=== PATIENT | male | born 1995 | race African-American/Black ===

== ENCOUNTER 2016-06-17 23:08 | Emergency (ER) | payer OTHER | END 2016-06-17 23:52 | disposition home or self-care (01) | LOC: ER1 23:08 | DX: M70.31 Other bursitis of elbow, right elbow (principal); Z88.0 Allergy status to penicillin; Z88.2 Allergy status to sulfonamides | CPT/HCPCS: 99283 ==

== ENCOUNTER 2021-01-03 18:23 | Emergency (ER) | payer SELFPAY ==
[~2021-01-03 18:23] MED LIST: CYCLOBENZAPRINE5 MG PO; EPIPEN 2-P0.3 MG/0.3 INJ; IBUPROFEN800 MG PO
[2021-01-03] MEDS ORDERED: IBUPROFEN600 MG PO (18:58)
== END 2021-01-03 19:08 | disposition home or self-care (01) ==
LOC: ER1 18:23
DX: S83.91XA Sprain of unspecified site of right knee, initial encounter (principal); Z88.2 Allergy status to sulfonamides; Z88.0 Allergy status to penicillin; X58.XXXA Exposure to other specified factors, initial encounter
CPT/HCPCS: 73564; 99283

== ENCOUNTER → 2021-08-17 | Outpatient (CLI) | payer OTHER ==
[~2021-08-17] MED LIST changes: +IBUPROFEN600 MG PO
== END ==
LOC: KOH-I 12:47
DX: S83.242A Other tear of medial meniscus, current injury, left knee, initial encounter (principal); S76.112A Strain of left quadriceps muscle, fascia and tendon, initial encounter
CPT/HCPCS: 73721

== ENCOUNTER 2021-12-10 23:13 | Emergency (ER) | payer OTHER | END 2021-12-11 00:28 | disposition left against medical advice (07) | LOC: ER1 23:13 | DX: Z53.21 Procedure and treatment not carried out due to patient leaving prior to being seen by health care provider (principal) ==